=== PATIENT | male | born 1985 | race Caucasian/White ===

== ENCOUNTER 2017-04-10 22:47 | Emergency (ER) | payer OTHER ==
[2017-04-10 22:54] VITALS: BP 144/98; PULSE 71; RESP 16; TEMP 98.4; O2SAT 95
--- NOTE | 2017-04-10 23:41 | EDPHY ---
General Narrative: CHIEF COMPLAINT: Eyebrow laceration HISTORY OF PRESENT ILLNESS: Patient complains of right eyebrow laceration. He says "I sneezed and head- butted a chair." He sustained a laceration to the right eyebrow when this happened. This was approximately 1 hr ago. No loss of conscious. No vomiting since the incident. No significant headache. No injury elsewhere. His tetanus is up-to-date less than 10 years ago. Minimal bleeding that stopped with simple pressure. No difficulty moving the eyebrow. No difficulty with his right eye vision. No other associated complaints or modifying factors. TIME OF INJURY: 1 hr prior to arrival TETANUS STATUS: Less than 5 years ago MEDICAL/SURGICAL/SOCIAL HISTORY: No significant medical history. Nonsmoker. Occasional alcohol use. Works at [employer] REVIEW OF SYSTEMS: Ten systems reviewed and are negative unless otherwise noted in the HPI EXAMINATION General Appearance: Alert, no distress Head: normocephalic, right eyebrow laceration as below. No Iglesias sign. No raccoon eyes. ENT: Right eyebrow laceration measuring 2.25 cm. No exposure of the underlying musculature or galea. No foreign body. No active bleeding. No injury to the eyelid. EOMs are intact. Pupils equal round reactive to light. Cardiovascular: Pulses normal throughout. Brisk cap refill Neurological: GCS 15. A&O, sensory symmetric, strength symmetric Skin: Warm and dry, no rash. Right eyebrow laceration as above. Extremities: Nontender, no pedal edema DIFFERENTIAL DIAGNOSES: Including but not limited to eyebrow laceration, eyebrow laceration with complication, MDM: 11:35 p.m. Right eyebrow laceration without complication. He is awake alert no acute distress. Neuro exam is normal. Based on history and exam there is no indication for CT scan at this time. I have anesthetize the laceration. Proceed with irrigation closure. 12:35 a.m. Laceration of the right eyebrow that has been closed without complication. Tolerated well. Normal movement of the eyebrow pre and Procedure there is no involvement of the eyelid. Wound care discussed. Return here in 5-7 days for suture removal. ED precautions discussed. Discharged in stable condition PROCEDURE: Laceration repair Consent: Verbal Location: Right eyebrow Length of repair: 2.25 cm Complexity: Simple Layer involvement: Single Anesthesia: Local. 1% lidocaine plain, 5 mL Irrigation: Extensive Debridement: None Procedure description: Following good anesthesia, the wound was copiously irrigated. Wound bed was explored with a sterile glove, and there is no foreign body noted. There is no injury to the underlying musculature or galea. Wound borders were approximated well with good hemostasis. Tolerated well without complication. Suture/Staple material: 6-0 Prolene, 4 simple interrupted sutures Wound care: Routine as discussed Suture/Staple removal: 5-7 Days SUPERVISION: This patient was independently evaluated without direct involvement of or examination by the attending physician. ED Precautions: Worsening pain. Erythema, edema, cyanosis, pallor, paresthesia or anesthesia. - History Smoking Status: Never smoked - Objective Vital Signs: Initial Vital Signs Temperature (C) 98.4 F 04/10/17 22:50 Heart Rate 71 04/10/17 22:50 Respiratory Rate 16 04/10/17 22:50 Blood Pressure 144/98 H 04/10/17 22:50 O2 Sat (%) 95 04/10/17 22:50 O2 Delivery Mode Room Air Allergies/Adverse Reactions: No Known Allergies Allergy (Unverified 04/10/17 22:53) Home Medications: Medication Instructions Recorded NK [No Known Home Meds] 04/10/17 Departure - Departure Disposition: Home, Routine, Self-Care Clinical Impression: Laceration of eyebrow, right Qualifiers: Encounter type: initial encounter Qualified Code(s): S01.111A - Laceration without foreign body of right eyelid and periocular area, initial encounter Condition: Good Instructions: Laceration (ED), Care For Your Stitches (ED) Additional Instructions: 1. Daily wound care as discussed 2. ED precautions for signs of infection should that develop 3. Return here in 5-7 days for suture removal as discussed Referrals: Tali Hill MD [Medical Doctor] - As per Instructions
== END 2017-04-11 00:41 | disposition home or self-care (01) ==
PROC: 0HQ1XZZ Repair Face Skin, External Approach (ICD-10-PCS; principal; 2017-04-10)
DX: S01.111A Laceration without foreign body of right eyelid and periocular area, initial encounter (principal); W22.8XXA Striking against or struck by other objects, initial encounter; Y93.89 Activity, other specified